=== PATIENT | female | born 2000 | race Caucasian/White ===

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

== ENCOUNTER 2021-07-29 18:20 | Outpatient (REF) | payer OTHER, SELFPAY ==
[2021-08-02 07:21] LABS: Chlamydia Result Negative (Negative); GC Result Negative (Negative)
== END 2021-07-29 18:21 | disposition home or self-care (01) ==
LOC: LBN 18:20
PROVIDERS: PCP Nurse Practitioner Family; Visit Provider Obstetrics & Gynecology
DX: Z11.3 Encounter for screening for infections with a predominantly sexual mode of transmission (principal)
CPT/HCPCS: 87491; 87591

== ENCOUNTER 2021-10-18 02:53 | Outpatient (CLI) | payer OTHER, SELFPAY ==
[2021-10-18 13:23] LABS: Abs Immature Grans 0.03 10^3/uL (0.0-0.06); Absolute Eosinophil Count 0.25 10^3/uL (0.0-0.7); Absolute Lymphocyte Count 1.81 10^3/uL (1.2-3.4); Absolute Monocyte Count 0.49 10^3/uL (0.1-0.8); Absolute Neutrophil Count 6.01 10^3/uL (1.2-6.7); Eosinophils % 2.9; HCT 45.5 % (36.0-46.0); HGB 15.4 g/dL (11.2-15.7); Immature Grans % 0.3; Lymphocytes % 21.1; MCH 29.8 pg (27.0-33.0); MCHC 33.8 % (32.0-36.0); MCV 88 fL (80-95); MPV 10.1 fL (8.0-11.0); Monocytes % 5.7; Platelet Count 272 10^3/uL (130-400); RBC 5.17 10^6/uL (3.93-5.22); RDW 12.2 % (11.7-14.6); RDW-SD 39.4 fL; WBC 8.59 10^3/uL (4.4-10.8)
[2021-10-18 13:28] LABS: ESR 2 mm/hr (0-20)
[2021-10-18 15:21] LABS: ALT 27 U/L (14-59); AST 14 U/L (15-37); Albumin 4.1 g/dL (3.4-5.0); Alkaline Phosphatase 85 U/L (46-116); Anion Gap 8.1 mmol/L (3-11); BUN 9 mg/dL (7-18); Bilirubin, Total 0.6 mg/dL (0.2-1.0); CO2 25.9 mmol/L (21.0-32.0); CREATININE 0.9 mg/dL (0.55-1.02); Calcium 8.9 mg/dL (8.5-10.1); Chloride 104 mmol/L (98-107); Glucose 88 mg/dL (74-106); Sodium 138 mmol/L (136-145); TSH 1.21 uIU/mL (0.36-3.74); Total Protein 7.2 g/dL (6.4-8.2)
[2021-10-18 23:07] LABS: Thyroglobulin Antibody 111 U/mL (<=60); Thyroperoxidase Antibody 342 U/mL (<=60)
[2021-10-19 15:20] LABS: ANA Interpretation Positive (Negative); ANA Titer Pattern 1:160 Homogeneous
== END 2021-10-18 02:54 | disposition home or self-care (01) ==
LOC: LBO 02:53
PROVIDERS: PCP Nurse Practitioner Family
DX: L50.1 Idiopathic urticaria (principal)
CPT/HCPCS: 36415; 80053; 83520; 85652; 86376; 84439; 84443; 85025; 86038; 86140

== ENCOUNTER 2022-01-04 02:50 | Outpatient (CLI) | payer OTHER, SELFPAY ==
[2022-01-04 10:47] LABS: FREE T4 1.21 ng/dL (0.76-1.46); TSH 1.14 uIU/mL (0.36-3.74)
[2022-01-04 18:01] LABS: Thyroglobulin Antibody 76 U/mL (<=60); Thyroperoxidase Antibody 255 U/mL (<=60)
[2022-01-12 12:38] LABS: Misc Referral (MAYO) See Comments
== END 2022-01-04 02:51 | disposition home or self-care (01) ==
LOC: LBO 02:50
PROVIDERS: PCP Nurse Practitioner Family
DX: L51.0 Nonbullous erythema multiforme (principal); R94.6 Abnormal results of thyroid function studies
CPT/HCPCS: 36415; 86376; 84439; 84443

== ENCOUNTER 2022-02-20 04:45 | Outpatient (CLI) | payer OTHER, SELFPAY ==
[2022-02-20 14:37] LABS: Abs Immature Grans 0.02 10^3/uL (0.0-0.06); Absolute Eosinophil Count 0.18 10^3/uL (0.0-0.7); Absolute Lymphocyte Count 1.94 10^3/uL (1.2-3.4); Absolute Monocyte Count 0.43 10^3/uL (0.1-0.8); Absolute Neutrophil Count 5.45 10^3/uL (1.2-6.7); Eosinophils % 2.2; HCT 44.1 % (36.0-46.0); HGB 14.5 g/dL (11.2-15.7); Immature Grans % 0.2; Lymphocytes % 24.2; MCH 28.9 pg (27.0-33.0); MCHC 32.9 % (32.0-36.0); MCV 88 fL (80-95); Monocytes % 5.4; Platelet Count 259 10^3/uL (130-400); RBC 5.02 10^6/uL (3.93-5.22); RDW-SD 38.6 fL; WBC 8.02 10^3/uL (4.4-10.8)
[2022-02-20 14:39] LABS: ESR 3 mm/hr (0-20)
[2022-02-20 14:42] LABS: Bilirubin Negative (Negative); Blood Trace-intact (Negative); Clarity Clear (Clear); Glucose Negative (Negative); Ketones Negative (Negative); Leukocyte Esterase Negative (Negative); Nitrite Negative (Negative); Specific Gravity >= 1.030 (1.005-1.025); Urobilinogen 0.2 EU/dL (Up TO 0.2)
[2022-02-20 14:48] LABS: Bacteria Rare HPF (Negative); C & S Indicated? No; Casts Negative LPF (Negative); Crystals Negative HPF (Negative); Epithelial Cells Few HPF (Negative); Mucus Negative (Negative); RBC 0-2 HPF (0-2); WBC Negative HPF (0-5)
[2022-02-20 16:36] LABS: ALT 16 U/L (14-59); AST 18 U/L (15-37); Albumin 4.4 g/dL (3.4-5.0); Alkaline Phosphatase 86 U/L (46-116); Anion Gap 9.7 mmol/L (3-11); BUN 17 mg/dL (7-18); Bilirubin, Total 0.9 mg/dL (0.2-1.0); C-Reactive Protein 0.44 mg/dL (0.0-0.3); CO2 27.3 mmol/L (21.0-32.0); Calcium 9.4 mg/dL (8.5-10.1); Chloride 102 mmol/L (98-107); Estimated GFR 82.71 (mL/min/1.73m2); Glucose 79 mg/dL (74-106); Potassium 3.8 mmol/L (3.5-5.1); Sodium 139 mmol/L (136-145); Total Protein 8.1 g/dL (6.4-8.2)
[2022-02-21 10:24] LABS: C3 Complement 102 mg/dL (81-157); C4 Complement 27 mg/dL (13-39)
[2022-02-21 13:24] LABS: Complement, Total 58 U/mL (30-75)
[2022-03-06 09:41] LABS: Misc Referral (MAYO) See Comments
== END 2022-02-20 04:46 | disposition home or self-care (01) ==
LOC: LBO 04:45
PROVIDERS: PCP Nurse Practitioner Family; Visit Provider Student in an Organized Health Care Education/Training Program
DX: D69.0 Allergic purpura (principal)
CPT/HCPCS: 36415; 80053; 85652; 81003; 81015; 85025; 86140; 86160; 86162

== ENCOUNTER 2023-02-14 08:10 | Emergency (ER) | payer BC, SELFPAY ==
[2023-02-14 08:22] VITALS: BP 143/84; PULSE 91; RESP 18; TEMP 36.3; O2SAT 99
[2023-02-14 08:45] LABS: Bilirubin Negative (Negative); Blood Trace-intact (Negative); Clarity Clear (Clear); Glucose Negative (Negative); Ketones Negative (Negative); Leukocyte Esterase Negative (Negative); Nitrite Negative (Negative); Specific Gravity >= 1.030 (1.005-1.025); Urobilinogen 0.2 mg/dL (Up to 0.2)
--- NOTE | 2023-02-14 08:45 | DI.CT_ITS ---
Exam(s) CT ABDOMEN PELVIS W EXAM: CT ABDOMEN PELVIS W CLINICAL HISTORY: abdominal pain LLQ, bloody stool TECHNIQUE: Imaging Protocol: Axial computed tomography images with coronal and sagittal reformatted images were created and reviewed CONTRAST MATERIAL: Intravenous: Omnipaque 350 Contrast volume:81 mL Oral: Yes COMPARISON: CT CT RENAL COLIC WO from 09/24/2019 FINDINGS: ABDOMEN: Lung Bases: Normal where visualized. Liver: Normal density. No measurable mass. Portal, Superior Mesenteric, and Splenic Veins: Unremarkable. Gallbladder and Biliary Tract: No radiodense calculus or dilation. Pancreas: Normal density, no abnormal calcifications or inflammatory process. Spleen: Normal. Adrenals: No masses seen. Kidneys: Normal size, contour and axis. No radiodense stones or obstructive uropathy. No masses seen. Abdominal Aorta: Abdominal portion non-dilated. Bowel: There is wall thickening seen in the distal transverse colon, descending colon and proximal si gmoid colon. There does appear to be mild stranding in the surrounding soft tissues. Infectious or inflammatory colitis is suspected. There is no evidence of bowel obstruction. No evidence of append icitis. Peritoneal Cavity: No ascites, collection or mesenteric inflammatory response. No free air. Lymph Nodes: Within normal limits. Bones: Within normal limits for the patient's age. Soft Tissues: Unremarkable. PELVIS: Bladder: Symmetric distention, no gross wall thickening. Reproductive Organs: There is an IUD which is in good position. Lymph Nodes: Within normal limits. Bones: Within normal limits for the patient's age. IMPRESSION: 1. Findings consistent with colitis involving the distal transverse colon, descending colon and proxi mal sigmoid colon. No abscess or free air. 2. Findings were discussed with Dr. Bridges at 11:24 a.m. on 02/14/2023. RADIATION DOSE DELIVERED: 440.08mGy.cm Total DLP DATA REPOSITORY: All CT scans at this facility are submitted to the National Radiology Data Registry (NRDR) Dose Index Registry (DIR) with the [employer] (ACR). RADIATION OPTIMIZATION: All CT scans at this facility use at least one of these dose optimization te chniques: automated exposure control; mA and/or kV adjustment per patient size (includes targeted exa ms where dose is matched to clinical indication); or iterative reconstruction.
[2023-02-14 08:54] LABS: Bacteria Few HPF (Negative); C & S Indicated? No; Casts Negative LPF (Negative); Crystals Negative HPF (Negative); Epithelial Cells Few HPF (Negative); Mucus Moderate (Negative); Other Cells Negative (Negative); WBC Negative HPF (0-5)
--- NOTE | 2023-02-14 09:11 | ED.GENADUL_ITS ---
Discharge Plan Disposition Patient Disposition: Home Condition: Stable Discharge Details Clinical Impression: Acute colitis Primary Care Provider: Unknown,Unknown ED Provider: Rohit Montague Home Meds and New Rx's Prescriptions: New metronidazole 500 mg tablet 500 mg PO BID Qty: 19 0RF Continued Mirena 20 mcg/24 hours (7 yrs) 52 mg intrauterine device 1 device intrauterine ONCE Rx Instructions: as a single dose (DME) Aerochamber Plus Flow-Vu,S Msk 1 EACH spacer 1 ea Miscellaneous Q4H PRN Qty: 1 Rx Instructions: use with inhaler as directed epinephrine [EpiPen 2-Phong] 0.3 MG/0.3 ML auto-injector 0.3 mg IM ONCE Qty: 1 levalbuterol tartrate [Xopenex HFA] 15 GM HFA aerosol inhaler 2 puff Inhalation Q4H PRN Qty: 1 No Action mesalamine 1,000 mg suppository 1 g DE QHS 21 Days Qty: 30 0RF prednisone 10 mg tablet 10 mg PO DIRECTED Qty: 70 0RF Rx Instructions: Take 4 tablet by mouth in the morning every day for 7 days Take 3 tablets by mouth every day throughout the second week Take 2 tablets by mouth every day throughout the third week Take 1 tablet by mouth every day through the fourth week Discharge Instructions Instructions: Colitis (ED) Additional Instructions: Please follow-up with general surgery for colonoscopy. Please contact your primary care physician to arrange follow-up. Return to the ER immediately for any worsening or new concerning symptoms. Referrals: [facility] [Provider Group] Discharge Data Discharge Date/Time-TO BE ENTERED AT DEPARTURE: 02/14/23 12:14 Medical Decision Making 922 --22-year-old female with history of constipation and urticarial vasculitis, here with 2 weeks of left lower quadrant abdominal pain 3 days of blood mixed into stool, and now mala bright red blood per rectum today. Plan to obtain CT of the abdomen pelvis to assess for acute surgical pathology. 1151 --CT the abdomen pelvis was interpreted by radiology:?Findings consistent with colitis involving the distal transverse colon, descending colon and proximal sigmoid colon.? No abscess or free air. Results were discussed with the patient. Patient remains hemodynamically stable with no hemorrhage. I called and spoke with Dr. Souza, on-call general surgeon, discussed ED presentation and course, he recommends close outpatient follow-up and will have office reach out to schedule colonoscopy late this week. He recommends starting metronidazole 500 twice daily. Stool bacterial pathogens ordered and pending at time of discharge. Plan for discharge with close outpatient follow-up. Lab Data Lab results reviewed: Yes I reviewed the patient's lab results. Labs: Laboratory Tests Range/Units 02/14/23 02/14/23 02/14/23 08:36 09:00 09:00 WBC (4.4-10.8) 10^3/uL 10.23 RBC (3.93-5.22) 10^6/uL 5.24 H Hgb (11.2-15.7) g/dL 15.1 Hct (36.0-46.0) % 45.0 MCV (80-95) fL 86 MCH (27.0-33.0) pg 28.8 MCHC (32.0-36.0) % 33.6 RDW (11.7-14.6) % 12.0 Plt Count (130-400) 10^3/uL 320 MPV (8.0-11.0) fL 9.8 Immature Gran % 0.5 Neutrophils % 77.0 Lymphocytes % 13.8 Monocytes % 5.6 Eosinophils % 3.0 Basophils % 0.1 Nucleated RBC % (0.0-0.3) % 0.0 Absolute Neutrophils (1.2-6.7) 10^3/uL 7.88 H Absolute Lymphocytes (1.2-3.4) 10^3/uL 1.41 Absolute Monocytes (0.1-0.8) 10^3/uL 0.57 Absolute Eosinophils (0.0-0.7) 10^3/uL 0.31 Absolute Basophils (0.0-0.2) 10^3/uL 0.01 Sodium (136-145) mmol/L 139 Potassium (3.5-5.1) mmol/L 3.6 Chloride (98-107) mmol/L 103 Carbon Dioxide (21.0-32.0) mmol/L 28.3 Anion Gap (3-11) mmol/L 7.7 BUN (7-18) mg/dL 11 Creatinine (0.55-1.02) mg/dL 1.0 Est GFR (CKD-EPI 2020) (mL/min/1.73m2) 82.20 Glucose (74-106) mg/dL 98 Calcium (8.5-10.1) mg/dL 9.5 Total Bilirubin (0.2-1.0) mg/dL 0.5 AST (15-37) U/L 11 L ALT (14-59) U/L 14 Alkaline Phosphatase (46-116) U/L 98 Total Protein (6.4-8.2) g/dL 7.9 Albumin (3.4-5.0) g/dL 4.0 Lipase (16-77) U/L 43 Urine Color (Yellow) Yellow Urine Clarity (Clear) Clear Urine pH (5-8) 6.0 Ur Specific [place] (1.005-1.025) >= 1.030 H Urine Protein (Negative) mg/dL Trace H Urine Ketones (Negative) mg/dL Negative Urine Blood (Negative) Trace-intact H Urine Nitrite (Negative) Negative Urine Bilirubin (Negative) Negative Urine Urobilinogen (Up to 0.2) mg/dL 0.2 Ur Leukocyte Esterase (Negative) Negative Urine RBC (0-2) HPF 3-5 H Urine WBC (0-5) HPF Negative Ur Epithelial Cells (Negative) HPF Few Urine Crystals (Negative) HPF Negative Urine Bacteria (Negative) HPF Few Urine Casts (Negative) LPF Negative Urine Mucus (Negative) Moderate Urine Other (Negative) Negative Ur Culture Indicated? No Urine Glucose (Negative) mg/dL Negative Patient ABO/Rh Antibody Screen Range/Units 02/14/23 09:00 WBC (4.4-10.8) 10^3/uL RBC (3.93-5.22) 10^6/uL Hgb (11.2-15.7) g/dL Hct (36.0-46.0) % MCV (80-95) fL MCH (27.0-33.0) pg MCHC (32.0-36.0) % RDW (11.7-14.6) % Plt Count (130-400) 10^3/uL MPV (8.0-11.0) fL Immature Gran % Neutrophils % Lymphocytes % Monocytes % Eosinophils % Basophils % Nucleated RBC % (0.0-0.3) % Absolute Neutrophils (1.2-6.7) 10^3/uL Absolute Lymphocytes (1.2-3.4) 10^3/uL Absolute Monocytes (0.1-0.8) 10^3/uL Absolute Eosinophils (0.0-0.7) 10^3/uL Absolute Basophils (0.0-0.2) 10^3/uL Sodium (136-145) mmol/L Potassium (3.5-5.1) mmol/L Chloride (98-107) mmol/L Carbon Dioxide (21.0-32.0) mmol/L Anion Gap (3-11) mmol/L BUN (7-18) mg/dL Creatinine (0.55-1.02) mg/dL Est GFR (CKD-EPI 2020) (mL/min/1.73m2) Glucose (74-106) mg/dL Calcium (8.5-10.1) mg/dL Total Bilirubin (0.2-1.0) mg/dL AST (15-37) U/L ALT (14-59) U/L Alkaline Phosphatase (46-116) U/L Total Protein (6.4-8.2) g/dL Albumin (3.4-5.0) g/dL Lipase (16-77) U/L Urine Color (Yellow) Urine Clarity (Clear) Urine pH (5-8) Ur Specific [place] (1.005-1.025) Urine Protein (Negative) mg/dL Urine Ketones (Negative) mg/dL Urine Blood (Negative) Urine Nitrite (Negative) Urine Bilirubin (Negative) Urine Urobilinogen (Up to 0.2) mg/dL Ur Leukocyte Esterase (Negative) Urine RBC (0-2) HPF Urine WBC (0-5) HPF Ur Epithelial Cells (Negative) HPF Urine Crystals (Negative) HPF Urine Bacteria (Negative) HPF Urine Casts (Negative) LPF Urine Mucus (Negative) Urine Other (Negative) Ur Culture Indicated? Urine Glucose (Negative) mg/dL Patient ABO/Rh O Positive Antibody Screen NEGATIVE HPI General Mode of arrival: ambulatory . Date/Time Provider Initiated Documentation: 02/14/23 08:26 . Limitations to Documentation: no limitations . Information obtained by: patient . HPI Narrative: 22-year-old female with history of constipation and urticarial vasculitis, presents with chief complaint of rectal bleeding. Patient notes over the past 2 weeks she has been experiencing abdominal pain. Patient notes pain recently has been fairly constant with intermittent sharp discomfort in her left lower abdomen. Sharp pain is worse after eating. Over the past 3 days she has had small blood in her bowel movements. Today she had a mala bloody bowel movement. Blood was bright red. Patient notes small skinny bowel movements over the past couple weeks. No associated nausea or vomiting. No associated fever. Related Data Home Medications Medication Instructions Recorded Confirmed inhalational spacing device #1 ea 11/08/15 02/15/23 (Aerochamber Plus Flow-Vu,Small Mask) epinephrine 0.3 mg/0.3 mL 0.3 mg IM ONCE ##1 11/15/16 02/15/23 injection, auto-injector (EpiPen 2-Phong) levalbuterol tartrate 45 2 puff inhalation Q4H PRN ##1 11/15/16 02/15/23 mcg/actuation aerosol inhaler (Xopenex HFA) levonorgestrel 21 mcg/24 hours (8 1 device intrauterine ONCE 09/02/21 02/15/23 yrs) 52 mg intrauterine device (Mirena) metronidazole 500 mg tablet 500 mg PO BID #19 tabs 02/14/23 02/15/23 mesalamine 1,000 mg rectal 1 g DE QHS 3 weeks #30 ea 02/15/23 02/15/23 suppository prednisone 10 mg tablet 10 mg PO DIRECTED #70 tabs 02/19/23 Previous Rx's Medication Instructions Recorded metronidazole 500 mg tablet 500 mg PO BID #19 tabs 02/14/23 mesalamine 1,000 mg rectal 1 g DE QHS 3 weeks #30 ea 02/15/23 suppository prednisone 10 mg tablet 10 mg PO DIRECTED #70 tabs 02/19/23 Allergies Allergy/AdvReac Type Severity Reaction Status Date / Time animal dander Allergy Verified 02/14/23 08:25 environmental Allergy Uncoded 02/14/23 08:25 General Stated Complaint: Abd Prob LENKA: 3 Review of Systems All systems reviewed & are unremarkable except as noted in HPI and below Constitutional Constitutional: Denies fever(s) Gastrointestinal Gastrointestinal: Reports as per HPI and Reports excessive flatus Comments: No hemorrhoids PFSH All Active Problems Acute colitis (Acute) DAIANA positive (Acute) Thyroid antibody positive (Acute) IUD check up (Acute) General counseling and advice for contraceptive management (Acute) Medical History Allergic rhinitis (07/22/14) Eczema Environmental allergies (Unknown) cat, dog, dust, pollen History of neck swelling (01/01/17) ?angioedema followed by allergy Janina Angel stared 07/08 Middle ear effusion Moderate persistent asthma (09/04/16) Right ankle sprain UTI (urinary tract infection) x2 as a child Vocal cord dysfunction (Unknown) Eval by [facility]. Working with them. Surgical History No significant past surgical history Family History Mother Asthma Father No problems noted. 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, Sophomore Pets and animals: No Sexually active: Yes Do you think of yourself as: straight/heterosexual Current gender identity: female Do you feel safe at home: Yes Do you feel safe in your relationship?: Yes Additional Social history: mother works at [employer], dad community health counselor older sister Coleen Female Reproductive History Menstrual Age of Menarche: 15 Duration of menses: 3-5 days control method: none History History 0 Para Hx # Term Pregnancies Multiple births Hx # Pregnancies Ectopic pregnancies AB induced Hx Number of Living Children AB spontaneous Exam Const General: cooperative and no acute distress HENMT Mouth: moist mucous membranes Eyes Conjunctivae: normal conjunctivae Sclera: normal sclerae Resp Auscultation: clear to auscultation bilaterally, no rales, no rhonchi and no wheezes Cardio Rate: regular rate and not tachycardic Rhythm: regular rhythm GI Palpation: soft, not firm, no guarding, no hernias, no masses, not rigid and tender in the LLQ Auscultation: hypoactive bowel sounds Skin General skin exam: no rashes or lesions noted Neuro General: patient alert, patient awake and tone normal Extrem General: no edema Psych Appearance: grossly normal Mental Status: mental status grossly normal Course Vital Signs Vital signs: Vital Signs Temperature 36.3 C L 02/14/23 08:22 Pulse 91 H 02/14/23 08:22 Respiratory Rate 18 02/14/23 08:22 Blood Pressure 143/84 H 02/14/23 08:22 Pulse Oximetry 99 02/14/23 08:22 Temperature 36.3 C L 02/14/23 08:22 Temperature Source Oral 02/14/23 08:22 Pulse 91 H 02/14/23 08:22 Respiratory Rate 18 02/14/23 08:22 Respiratory Effort Normal, Non-Labored 02/14/23 08:26 Blood Pressure 143/84 H 02/14/23 08:22 Pulse Oximetry 99 02/14/23 08:22 Pain Level 3 02/14/23 08:22 Lab/Test Results Lab/Test Results: Laboratory Tests Range/Units 02/14/23 08:36 Urine Color (Yellow) Yellow Urine Clarity (Clear) Clear Urine pH (5-8) 6.0 Ur Specific [place] (1.005-1.025) >= 1.030 H Urine Protein (Negative) mg/dL Trace H Urine Ketones (Negative) mg/dL Negative Urine Blood (Negative) Trace-intact H Urine Nitrite (Negative) Negative Urine Bilirubin (Negative) Negative Urine Urobilinogen (Up to 0.2) mg/dL 0.2 Ur Leukocyte Esterase (Negative) Negative Urine RBC (0-2) HPF 3-5 H Urine WBC (0-5) HPF Negative Ur Epithelial Cells (Negative) HPF Few Urine Crystals (Negative) HPF Negative Urine Bacteria (Negative) HPF Few Urine Casts (Negative) LPF Negative Urine Mucus (Negative) Moderate Urine Other (Negative) Negative Ur Culture Indicated? No Urine Glucose (Negative) mg/dL Negative POC- Test(urine) Negative
[2023-02-14 09:18] LABS: Abs Immature Grans 0.05 10^3/uL (0.0-0.06); Absolute Basophil Count 0.01 10^3/uL (0.0-0.2); Absolute Eosinophil Count 0.31 10^3/uL (0.0-0.7); Absolute Lymphocyte Count 1.41 10^3/uL (1.2-3.4); Absolute Monocyte Count 0.57 10^3/uL (0.1-0.8); Absolute Neutrophil Count 7.88 10^3/uL (1.2-6.7); Basophils % 0.1; HGB 15.1 g/dL (11.2-15.7); Immature Grans % 0.5; Lymphocytes % 13.8; MCH 28.8 pg (27.0-33.0); MCHC 33.6 % (32.0-36.0); MCV 86 fL (80-95); MPV 9.8 fL (8.0-11.0); Monocytes % 5.6; Platelet Count 320 10^3/uL (130-400); RBC 5.24 10^6/uL (3.93-5.22); RDW-SD 37.6 fL; WBC 10.23 10^3/uL (4.4-10.8)
[2023-02-14 09:27] LABS: ALT 14 U/L (14-59); AST 11 U/L (15-37); Alkaline Phosphatase 98 U/L (46-116); Anion Gap 7.7 mmol/L (3-11); BUN 11 mg/dL (7-18); Bilirubin, Total 0.5 mg/dL (0.2-1.0); CO2 28.3 mmol/L (21.0-32.0); Calcium 9.5 mg/dL (8.5-10.1); Chloride 103 mmol/L (98-107); Glucose 98 mg/dL (74-106); Lipase 43 U/L (16-77); Potassium 3.6 mmol/L (3.5-5.1); Sodium 139 mmol/L (136-145); Total Protein 7.9 g/dL (6.4-8.2)
[2023-02-14] MEDS: Breeza Beverage 473 ML BTL PO (09:29)
[2023-02-14] MEDS: Omnipaque 350 MG/ML 50 ML BTL IJ (09:29)
[2023-02-14] MEDS: Omnipaque 350 MG/ML 500 ML BTL-Imaging package 81 ML IJ (10:44)
[2023-02-14] MEDS: Normal Saline - Diluent 50 ML VIAL IJ (10:45)
[2023-02-14] MEDS: metroNIDAZOLE 500 MG TAB PO (12:00)
[2023-02-14 12:04] VITALS: BP 113/78; PULSE 80; RESP 20; O2SAT 99
[2023-02-14 23:35] LABS: Campylobacter PCR Negative (Negative); Salmonella PCR Negative (Negative); Shiga Toxin PCR Negative (Negative); Shigella/Enteroinvasive Ecoli Negative (Negative)
== END 2023-02-14 12:14 | disposition home or self-care (01) ==
PROVIDERS: Emergency Provider Student in an Organized Health Care Education/Training Program
DX: R10.32 Left lower quadrant pain (principal); K52.9 Noninfective gastroenteritis and colitis, unspecified
CPT/HCPCS: 36415; 80053; 81025; 83690; 86850; 86900; 86901; 87505; 99285; 74177; 81003; 81015; 85025; Q9967

== ENCOUNTER 2023-02-17 15:08 | Outpatient (CLI) | payer BC, SELFPAY ==
[2023-02-20 15:04] LABS: Myeloperoxidase Ab IgG <0.2 U; Proteinase 3 Ab (PR3) <0.2 U
== END 2023-02-17 15:09 | disposition home or self-care (01) ==
LOC: LBO 15:09
PROVIDERS: PCP Family Medicine; Visit Provider Surgery
DX: K52.9 Noninfective gastroenteritis and colitis, unspecified (principal)
CPT/HCPCS: 36415; 83516

== ENCOUNTER → 2023-02-21 09:14 | Outpatient (CLI) | payer BC, SELFPAY ==
--- NOTE | 2023-02-21 09:00 | DI.CT_ITS ---
Exam(s) CT ABDOMEN PELVIS CTA EXAM: CT ABDOMEN PELVIS CTA CLINICAL HISTORY: r/o mesenteric thrombus K52.9 GASTROENTERITIS AND COLITIS. TECHNIQUE: Imaging Protocol: Axial computed tomography images with coronal and sagittal reformatted images were created and reviewed CONTRAST MATERIAL: Intravenous: Omnipaque 350 Contrast volume:100 ml Oral: None COMPARISON: CT CT ABDOMEN PELVIS W from 02/14/2023 FINDINGS: CARDIAC: Heart size is normal. There is no pericardial effusion. AORTA: Caliber of the thoracic aorta is within normal limits.There is no evidence of aortic dissectio n. ABDOMEN: There is no evidence of abdominal aortic aneurysm nor dissection.There is no aneurysmal dilatation no r dissection of the iliac arteries.Both common femoral arteries also appear unremarkable. With respect of the mesenteric vessels, there is no significant stenosis nor aneurysm of the celiac a rtery. Splenic artery and common hepatic artery are patent as is the gastroduodenal artery. There i s no significant stenosis at the origin of the superior mesenteric artery. No narrowing of this vess el and no evidence of filling defect to suggest intraluminal embolus. The inferior mesenteric artery is also demonstrated to be patent. Both renal arteries are patent. No stenosis and no evidence of fibromuscular dysplasia. There is no ascites. LIVER: There are no focal hepatic lesions nor dilatation of intrahepatic ducts. GALLBLADDER/BILIARY: No obvious gallbladder pathology. CBD is not dilated. PANCREAS: No evidence of pancreatic mass nor dilatation of the pancreatic duct. SPLEEN: Spleen is not enlarged. There are no intrasplenic lesions. Splenic and portal veins are diff icult to assess accurately as this is an arterial phase study. ADRENALS: There are no significant adrenal masses. KIDNEYS: No cysts evident. No calculi nor hydronephrosis. No solid renal masses. ABDOMINAL AORTA: See above LYMPH NODES: There is no retroperitoneal nor para-aortic adenopathy. No obvious mesenteric masses. ABDOMINAL WALL: No evidence of significant anterior abdominal wall hernia. GI: There is no evidence of bowel obstruction, free air, nor abscess. PELVIS: LYMPH NODES: There is no intrapelvic nor inguinal adenopathy. GI: No evidence of appendicitis.No evidence of sigmoid diverticulitis.There are no ischemic appearing bowel loops. There are no large meandering vessels in the mesentery. URINARY BLADDER: No calculi nor masses evident REPRODUCTIVE: There is an IUD in the endometrial canal. There is a corpus luteum peripherally enhanc ing corpus luteum cyst in left ovary measuring 2.2 by 1.3 cm. OSSEOUS: No significant osseous lesions. No fractures. IMPRESSION: 1. Abdominal aorta and aortoiliac segments as well as common femoral arteries are patent. No aneurys ms and no evidence of significant atherosclerotic disease. 2. Mesenteric vessels are patent. No significant stenosis and no intraluminal thrombus/emboli eviden t. No ischemic appearing bowel loops evident. 3. IUD in the uterine canal. Corpus luteal cyst in left ovary. RADIATION DOSE DELIVERED: 860.91mGy.cm Total DLP DATA REPOSITORY: All CT scans at this facility are submitted to the National Radiology Data Registry (NRDR) Dose Index Registry (DIR) with the [employer] [place] [employer] (ACR). RADIATION OPTIMIZATION: All CT scans at this facility use at least one of these dose optimization te chniques: automated exposure control; mA and/or kV adjustment per patient size (includes targeted exa ms where dose is matched to clinical indication); or iterative reconstruction.
[2023-02-21 10:26] LABS: HCT 43.8 % (36.0-46.0); HGB 14.6 g/dL (11.2-15.7); Lactate 1.3 mmol/L (0.6-1.4); MCH 28.4 pg (27.0-33.0); MCHC 33.3 % (32.0-36.0); MCV 85 fL (80-95); MPV 9.6 fL (8.0-11.0); Platelet Count 343 10^3/uL (130-400); RBC 5.14 10^6/uL (3.93-5.22); RDW 12.4 % (11.7-14.6); RDW-SD 38.7 fL; WBC 9.59 10^3/uL (4.4-10.8)
[2023-02-21] MEDS: Normal Saline - Diluent 50 ML VIAL IJ (10:34)
[2023-02-21] MEDS: Omnipaque 350 MG/ML 500 ML BTL-Imaging package IJ (10:36)
[2023-02-21] MEDS: Normal Saline Flush 10 ML SYR IVP (10:39)
== END ==
PROVIDERS: PCP Family Medicine; Visit Provider Surgery
DX: K52.9 Noninfective gastroenteritis and colitis, unspecified (principal)
CPT/HCPCS: 85027; 74174; 83605

== ENCOUNTER 2023-02-21 10:51 | Outpatient (REF) | payer BC, SELFPAY ==
[2023-02-21 09:31] LABS: C Diff PCR Negative (Negative)
[2023-02-23 21:00] LABS: Calprotectin 620 mcg/g
== END 2023-02-21 10:52 | disposition home or self-care (01) ==
LOC: LBN 10:51
PROVIDERS: PCP Family Medicine; Visit Provider Surgery
DX: K52.9 Noninfective gastroenteritis and colitis, unspecified (principal)
CPT/HCPCS: 87493; 83993

== ENCOUNTER 2023-02-22 12:15 | Day surgery (SDC) | payer BC, SELFPAY ==
--- NOTE | 2023-02-21 13:26 | W.PM.DSUDISC ---
Date of service: 02/22/23 Time of Service: 14:51 Discharge Plan Disposition Condition: Good Discharge Details Reason For Visit: flexible sigmoidoscopy Attending Provider: Carmelo Souza Primary Care Provider: Roldan Moore Home Meds and New Rx's Prescriptions: Continued Mirena 20 mcg/24 hours (7 yrs) 52 mg intrauterine device 1 device intrauterine ONCE Rx Instructions: as a single dose (DME) Aerochamber Plus Flow-Vu,S Msk 1 EACH spacer 1 ea Miscellaneous Q4H PRN Qty: 1 Rx Instructions: use with inhaler as directed epinephrine [EpiPen 2-Phong] 0.3 MG/0.3 ML auto-injector 0.3 mg IM ONCE Qty: 1 levalbuterol tartrate [Xopenex HFA] 15 GM HFA aerosol inhaler 2 puff Inhalation Q4H PRN Qty: 1 prednisone 10 mg tablet 10 mg PO DIRECTED Qty: 70 0RF Rx Instructions: Take 4 tablet by mouth in the morning every day for 7 days Take 3 tablets by mouth every day throughout the second week Take 2 tablets by mouth every day throughout the third week Take 1 tablet by mouth every day through the fourth week metronidazole 500 mg tablet 500 mg PO BID Qty: 19 0RF No Action mesalamine [Canasa] 1,000 mg suppository 1 g ND QHS Discharge Instructions Instructions: Ulcerative Colitis (DC) Additional Instructions: Farooq, you did great today. What you are going through is very hard. I admire your grit. I would like you to stop your mesalamine suppositories, and stop the Flagyl. We will continue your prednisone for now. We will give it a few more days to see how you are symptoms play out. Hopefully, the high dose of the steroid will really get the inflammation under control. Like I mentioned, however, there are other options. So keep me informed. In the meantime, I have made a referral down to [facility] to meet with the gastroenterology specialists and discuss long-term treatment options. Of course, let you know when I have the results of the biopsies. Activity:: Activity as Tolerated Diet:: As Tolerated DS: Diagnosis Discharge Diagnosis (1) Acute colitis: Status: Acute
--- NOTE | 2023-02-21 13:28 | W.COLOREPORT ---
Date of service: 02/22/23 Time of Service: 14:58 Colonoscopy Report Date of procedure: 02/22/23 Pre-op diagnosis general: Colitis Post-op diagnosis procedure note: other (Ulcerative colitis) Procedure: Flexixble sigmoidoscopy with biopsies Surgeon: Carmelo Souza Anesthesia Type: General:No Airway and General LMA/ETT Estimated blood loss (mL): 10 Pathology: other (Colon biopsies) Complications: None Disposition: same day Indications: Farooq is 22 years old, she has a new diagnosis of colitis by CAT scan. She has been experiencing bloody diarrhea as well as cramping abdominal pain. Prep: Other (Enemas) Procedure Start Time: 14:16 Procedure End Time: 14:25 Retraction Time: 6 Findings: Febrile, edematous mucosa extending from the distal rectum up to and beyond 50 cm from the anal verge Procedure Description: After the induction of monitored anesthetic care, and with the patient in left lateral decubitus position, I began by performing an external anorectal exam.? Perineum and skin were normal, as was the anal verge.? There was no evidence of external hemorrhoids.? Next, I performed a digital rectal exam.? I did not appreciate any abnormal findings.? Next, I advanced a colonoscope into the rectal vault.? I performed retroflexion.? The distal rectum and proximal anal vault were mildly edematous and friable.? Using insufflation, I then advanced the colonoscope beyond the rectal folds and into the sigmoid colon towards the descending colon. Great care was taken to minimize insufflation, and and to avoid irritating the surrounding mucosa. There was complete effacement of the vascular pattern along the colonic mucosa. The mucosa had a glandular appearance, without obvious cobblestoning. To my eye, this seems most consistent with ulcerative colitis. With 1 continuous segment of colitis extending from the rectum up to the descending colon, I felt that was sufficient to make the appropriate diagnosis. Therefore, I did not advance the colonoscope over to the transverse and right colons. I did perform random biopsies using cold forceps without any difficulty. There was minimal bleeding from the biopsy sites. The colonoscope was then gently withdrawn along the length of the mucosa again, confirming the above-mentioned findings. The camera was removed, the patient was allowed awaken and transferred to the recovery unit.
[2023-02-22 12:39] VITALS: BP 106/74; PULSE 68; RESP 17; TEMP 36.7; O2SAT 100
[2023-02-22] MEDS: Lactated Ringers 1,000 ML 80 ML IV (12:50)
--- NOTE | 2023-02-22 13:37 | W.ANESPRE ---
General Info Date of Service Date Performed: 02/22/23 Height: 5 ft 2 in Weight: 57.1 kg Body Mass Index (BMI): 23.0 Surgical Procedure: Operation Date: 02/22/23 14:25 Proposed Procedure Side Surgeon p Flexible Sigmoidoscopy Carmelo Souza MD Meds Allergies and Home Medications Allergies Allergy/AdvReac Type Severity Reaction Status Date / Time animal dander Allergy Verified 02/22/23 12:39 environmental Allergy Uncoded 02/22/23 12:39 Home Medication Medication Instructions Recorded inhalational spacing device #1 ea 11/08/15 (Aerochamber Plus Flow-Vu,Small Mask) epinephrine 0.3 mg/0.3 mL 0.3 mg IM ONCE ##1 11/15/16 injection, auto-injector (EpiPen 2-Phong) levalbuterol tartrate 45 2 puff inhalation Q4H PRN ##1 11/15/16 mcg/actuation aerosol inhaler (Xopenex HFA) levonorgestrel 21 mcg/24 hours (8 1 device intrauterine ONCE 09/02/21 yrs) 52 mg intrauterine device (Mirena) metronidazole 500 mg tablet 500 mg PO BID #19 tabs 02/14/23 prednisone 10 mg tablet 10 mg PO DIRECTED #70 tabs 02/19/23 mesalamine 1,000 mg rectal 1 g NC QHS 02/22/23 suppository (Canasa) Current Visit Medications: Current Medications Generic Name Dose Route Start Last Admin Trade Name Freq PRN Reason Stop Dose Admin Hyoscyamine Sulfate 0.125 mg 02/21/23 13:30 Hyoscyamine 0.125 Mg Sl/Oral/Chew SL 03/23/23 13:29 DIRECTED PRN Ringer's Solution 1,000 mls @ 80 mls/hr 02/22/23 06:00 02/22/23 12:50 IV 03/23/23 23:59 80 mls/hr INFUSION MIRIAM Administration IV Miscellaneous Supplies 1 each 02/22/23 06:00 Iv Access IV 03/23/23 23:59 DIRECTED MIRIAM Ondansetron HCl 4 mg 02/21/23 13:30 Ondansetron 4 Mg/2 Ml Vial IVP 03/23/23 13:29 Q4H PRN PRN Nausea / Vomiting Sodium Biphosphate/Sodium Phosphate 266 ml 02/22/23 06:00 02/22/23 12:56 Na Phosphate Enema 133 Ml Btl NC 02/22/23 18:00 2 btl DIRECTED MIRIAM Administration Sodium Chloride 0 ml 02/22/23 06:00 Normal Saline Flush 10 Ml Syr IV 03/23/23 23:59 PRN PRN Sodium Chloride 0 ml 02/22/23 06:00 Normal Saline 10 Ml Vial IJ 03/23/23 23:59 DIRECTED PRN Sterile Water 0 ml 02/22/23 06:00 Water,Injection,Sterile 10 Ml Vial IJ 03/23/23 23:59 DIRECTED PRN PFSH Active Problems Active Problems: Problem Status Onset Code General counseling and advice for contraceptive management Z30.09 IUD check up Z30.431 Thyroid antibody positive R76.8 DAIANA positive R76.8 Acute colitis K52.9 Colitis K52.9 Medical History Medical History Allergic rhinitis (07/22/14) Eczema Environmental allergies (Unknown) cat, dog, dust, pollen History of neck swelling (01/01/17) ?angioedema followed by allergy [place] Zolair stared 07/08 Middle ear effusion Moderate persistent asthma (09/04/16) Right ankle sprain Urticarial vasculitis UTI (urinary tract infection) x2 as a child Vocal cord dysfunction (Unknown) Eval by [employer]. Working with them.-Per mom this has resolved Medical History Comments:: Per mom states herself throws up violently but Diane has not had any anesthesia Surgical History Surgical History (Updated 02/22/23 @ 13:41 by Erinn Gómez RN) Hx of wisdom tooth extraction No significant past surgical history Tobacco Smoking/Tobacco Use Status: Never Alcohol Alcohol Intake: current Alcohol intake frequency: holidays/special occasions only Substance Use Substance use: Never Substance use type: does not use Prental History History 0 Para Hx # Term Pregnancies Multiple births Hx # Pregnancies Ectopic pregnancies AB induced Hx Number of Living Children AB spontaneous Vital Signs and Lab Results Vital Signs Most Recent Vital Signs in EMR: Most Recent Vital Signs Temp Pulse Resp BP Pulse Ox 36.7 C 68 17 106/74 100 02/22/23 12:39 02/22/23 12:39 02/22/23 12:39 02/22/23 12:39 02/22/23 12:39 Point of Care Results Point of Care Results: POC- Test(urine) Negative 02/22/23 13:41 Lab Results Blood Type / Crossmatch: Patient ABO/Rh O Positive 02/14/23 Antibody Screen NEGATIVE 02/14/23 Complete Blood Count: White Blood Count 9.59 10^3/uL (4.4-10.8) 02/21/23 10:17 Red Blood Count 5.14 10^6/uL (3.93-5.22) 02/21/23 10:17 Hemoglobin 14.6 g/dL (11.2-15.7) 02/21/23 10:17 Hematocrit 43.8 % (36.0-46.0) 02/21/23 10:17 Platelet Count 343 10^3/uL (130-400) 02/21/23 10:17 Venous Blood Lactate 1.3 mmol/L (0.6-1.4) 02/21/23 10:17 Complete Metabolic Panel: Sodium 139 mmol/L (136-145) 02/14/23 09:00 Potassium 3.6 mmol/L (3.5-5.1) 02/14/23 09:00 Chloride 103 mmol/L (98-107) 02/14/23 09:00 Carbon Dioxide 28.3 mmol/L (21.0-32.0) 02/14/23 09:00 BUN 11 mg/dL (7-18) 02/14/23 09:00 Creatinine 1.0 mg/dL (0.55-1.02) 02/14/23 09:00 Est GFR (CKD-EPI 2020) 82.20 (mL/min/1.73m2) 02/14/23 09:00 Calcium 9.5 mg/dL (8.5-10.1) 02/14/23 09:00 Albumin 4.0 g/dL (3.4-5.0) 02/14/23 09:00 Glucose 98 mg/dL (74-106) 02/14/23 09:00 Liver Function Panel: Alanine Aminotransferase (ALT/SGPT) 14 U/L (14-59) 02/14/23 09:00 Aspartate Amino Transf (AST/SGOT) 11 U/L (15-37) L 02/14/23 09:00 Coagulation Panel: No Data to Display Cardiac Panel: No Data to Display Arterial Blood Gas: No Data to Display Venous Blood Gas: No Data to Display Pancreas Panel: Lipase 43 U/L (16-77) 02/14/23 09:00 Thyroid Panel: No Data to Display Infectious Disease: No Data to Display Blood Cultures: No Data to Display Toxicology Panel: No Data to Display Panel: No Data to Display Anesthesia Assessment and Plan Anesthesia History Personal History: No History of General Anesthesia Family History: Other (PONV) Exercise Tolerance Exercise Tolerance: Metabolic Equivalents>4 Pertinent Negatives Pertinent Negatives: No Symptoms of GERD, No Major Cardiovascular Symptoms or Complaints and No Major Pulmonary Symptoms or Complaints Cardiac & Pulmonary Exam Cardiac Exam: Normal S1/S2 Heart Sounds Pulmonary Exam: Clear Bilateral Breath Sounds Implantable Cardiac Device Does patient have a Pacemaker or an ICD?: No Airway Exam Known Difficult Airway: No Mallampati Class: 2 Mouth Opening: Normal (> 3cm) Thyromental Distance: Greater than 3 cm Neck Range of Motion: Full ROM Neck Circumference: Normal Teeth Condition: Normal Dentition ASA Classification ASA Score: ASA 2 Emergency Case?: No NPO Status NPO Status: NPO Clears >2 hours, Solids >8 hours Status Status: Negative HCG Anesthesia Plan Resuscitation Status: Full Code Anesthesia Technique: General Anesthesia Airway Planned: Natural Airway Monitors Used: Standard Monitors
[2023-02-22 13:38] VITALS: BMI 23.0
--- NOTE | 2023-02-22 14:22 | BOWEL_PTH ---
PATIENT: Diane Lynne LOC: [facility] U#:[id number] AGE/SX: 22/F ROOM: RE02/22/[address]: Carmelo Souza MD : 2000 BED: DIS: 02/22/2023 SPEC #: [id number] RECD: 02/22/23 17:34 STATUS: RAYMOND RE #: [id number] TEJAL: 02/22/23 14:[address]: Carmelo Souza DEPT: Surgical Specimen RECD BY: Yenni Murphy ENTERED: 02/22/23 17:34 SP TYPE: Bowel OTHR DR: Roldan Moore Tissues: 1 - BIOPSY BOWEL Procedures: GROSS AND MICRO LEVEL 4 Comments: [id number]
[2023-02-22 14:30] VITALS: BP 108/71; PULSE 84; RESP 15; TEMP 36.6; O2SAT 98
[2023-02-22 15:15] VITALS: BP 105/63; PULSE 61; RESP 16; TEMP 36.6; O2SAT 100
--- NOTE | 2023-02-22 15:32 | W.ANESPOSTOP ---
Postoperative Evaluation Date, Time and Location Date Performed: 02/22/23 Time Performed: 14:33 Patient Location: Day Surgery Unit Vital Signs Most Recent Imported Vital Signs: Most Recent Vital Signs Temp Pulse Resp BP Pulse Ox 36.6 C 84 15 108/71 98 02/22/23 14:30 02/22/23 14:30 02/22/23 14:30 02/22/23 14:30 02/22/23 14:30 Pain Score Most Recent Pain Score: Most Recent Pain Score Pain Level 0 02/22/23 14:30 Assessment Mental Status: Awake (Alert & Oriented to Patient Baseline) Airway and Respiratory Function: Patent airway with normal (patient baseline) respiratory exam Cardiovascular Function: Hemodynamically Stable Hydration Status: Adequately Hydrated Nausea & Vomiting: No Nausea or Vomiting Pain: Pt. Denies Any Pain Peripheral Nerve Block: Patient did not receive a nerve block
== END 2023-02-22 15:25 | disposition home health service (06) ==
PROVIDERS: PCP Family Medicine; Visit Provider Surgery
PROC: 0DJD8ZZ Inspection of Lower Intestinal Tract, Via Natural or Artificial Opening Endoscopic (ICD-10-PCS; CPT 45330; principal; 2023-02-22 14:15)
DX: K51.90 Ulcerative colitis, unspecified, without complications (principal)
CPT/HCPCS: 45331; 81025; 88305; J2001; J2405; J2704

== ENCOUNTER 2023-04-01 12:00 | Outpatient (REF) | payer BC, SELFPAY ==
[2023-04-06 16:03] LABS: Calprotectin 84.2 mcg/g
== END 2023-04-01 12:01 | disposition home or self-care (01) ==
LOC: LBN 12:00
PROVIDERS: PCP Family Medicine; Visit Provider Internal Medicine Gastroenterology
DX: K52.9 Noninfective gastroenteritis and colitis, unspecified (principal)
CPT/HCPCS: 83993

== ENCOUNTER 2024-06-23 14:25 | Outpatient (CLI) | payer BC, SELFPAY ==
[2024-06-23 12:01] LABS: C-Reactive Protein < 0.50 mg/dL (<or=0.5)
== END 2024-06-23 14:26 | disposition home or self-care (01) ==
LOC: LBO 14:25
PROVIDERS: PCP Family Medicine; Visit Provider Internal Medicine
DX: K51.311 Ulcerative (chronic) rectosigmoiditis with rectal bleeding (principal)
CPT/HCPCS: 36415; 86140

== ENCOUNTER 2024-06-25 20:00 | Outpatient (REF) | payer BC, SELFPAY ==
[2024-07-02 18:27] LABS: Calprotectin <50.0 mcg/g
== END 2024-06-25 20:01 | disposition home or self-care (01) ==
LOC: LBN 20:00
PROVIDERS: PCP Family Medicine; Visit Provider Internal Medicine
DX: K51.311 Ulcerative (chronic) rectosigmoiditis with rectal bleeding (principal)
CPT/HCPCS: 83993